=== PATIENT | male | born 1965 | race Caucasian/White ===

== ENCOUNTER 2020-01-21 09:47 | Outpatient (REF) | payer OTHER, SELFPAY ==
[2020-01-21 11:37] LABS: MANUAL DIFF FLAG NO
[2020-01-21 11:42] LABS: Basophils Percent Auto 0.6 % (0-2); Eosinophils Absolute Auto 0.2 X10*3/uL (0.0-0.4); Eosinophils Percent Auto 3.7 % (0-4); Hematocrit 44.2 % (42-52); Hemoglobin 14.5 g/dl (14.0-18.0); Imm Gran Abs Auto 0.03 X10*3/uL (0.00-0.03); Imm Gran Pct Auto 0.5 % (0.0-0.4); Lymphocytes Absolute Auto 2.4 X10*3/uL (1.2-4.9); Lymphocytes Percent Auto 37.2 % (20-40); Mean Corpuscular HGB Conc 32.8 g/dl (31.0-36.0); Mean Corpuscular Volume 91.3 fL (80-98); Mean Platelet Volume 10.3 fL (9.4-12.4); Monocytes Absolute Auto 0.5 X10*3/uL (0.1-1.2); Monocytes Percent Auto 6.9 % (2-11); Neutrophils Absolute Auto 3.3 X10*3/uL (2.0-8.3); Neutrophils Percent Auto 51.1 % (45-73); Platelet Count 276 X10*3/uL (160-400); Red Blood Count 4.84 X10*6/uL (4.60-5.80); Red Cell Distribution Width 13.8 % (11.0-16.0); White Blood Count 6.5 X10*3/uL (4.8-10.8)
[2020-01-21 12:08] LABS: Alanine Aminotransferase 9 U/L (0-40); Albumin Level 4.4 g/dL (3.5-5.0); Alkaline Phosphatase 42 U/L (39-117); Aspartate Amino Transferase 11 U/L (5-37); Bilirubin Total 0.2 mg/dL (0.0-1.0); Blood Urea Nitrogen 11 mg/dL (9-16); Calcium 9.1 mg/dL (8.4-10.2); Cholesterol 195 mg/dL; Estimated Glomerular Filt Rate > 60; Glucose Fasting 91 mg/dL (60-99); HDL Cholesterol 63 mg/dL; LDL Cholesterol Calculated 108 mg/dl; Total Protein 6.7 g/dL (6.5-8.0); Triglycerides 121 mg/dL
[2020-01-21 12:19] LABS: Anion Gap 12 (12-20); Carbon Dioxide 23 mmol/L (22-29); Chloride 106 mmol/L (96-108); Potassium 4.2 mmol/l (3.3-5.1); Sodium 137 mmol/L (135-145); ~Hepatitis C Antibody Nonreactive (Nonreactive)
[2020-01-21 12:25] LABS: Prostate Specific Antigen 0.48 ng/mL (<0.05-4.0)
== END 2020-01-21 09:48 | disposition home or self-care (01) ==
LOC: HO.MANLDS 09:47
PROVIDERS: PCP Internal Medicine; Visit Provider Internal Medicine
DX: Z00.00 Encounter for general adult medical examination without abnormal findings (principal)
CPT/HCPCS: 36415; 80053; 80061; 84153; 85025; 86803

== ENCOUNTER 2020-07-04 13:52 | Outpatient (REF) | payer OTHER, SELFPAY ==
[2020-07-04 17:53] LABS: MANUAL DIFF FLAG NO
[2020-07-04 18:04] LABS: Basophils Percent Auto 0.5 % (0-2); Eosinophils Absolute Auto 0.2 X10*3/uL (0.0-0.4); Eosinophils Percent Auto 2.8 % (0-4); Hemoglobin 14.1 g/dl (14.0-18.0); Imm Gran Abs Auto 0.01 X10*3/uL (0.00-0.03); Imm Gran Pct Auto 0.2 % (0.0-0.4); Lymphocytes Absolute Auto 2.6 X10*3/uL (1.2-4.9); Lymphocytes Percent Auto 39.3 % (20-40); Mean Corpuscular HGB Conc 33.6 g/dl (31.0-36.0); Mean Corpuscular Hemoglobin 30.2 pg (27.0-33.0); Mean Corpuscular Volume 89.9 fL (80-98); Mean Platelet Volume 10.3 fL (9.4-12.4); Monocytes Absolute Auto 0.4 X10*3/uL (0.1-1.2); Monocytes Percent Auto 6.8 % (2-11); Neutrophils Absolute Auto 3.3 X10*3/uL (2.0-8.3); Neutrophils Percent Auto 50.4 % (45-73); Platelet Count 286 X10*3/uL (160-400); Red Blood Count 4.67 X10*6/uL (4.60-5.80); Red Cell Distribution Width 13.4 % (11.0-16.0); White Blood Count 6.5 X10*3/uL (4.8-10.8)
[2020-07-04 18:39] LABS: Erythrocyte Sedimentation Rate 2 MM/HR (0-15)
[2020-07-04 18:40] LABS: Alanine Aminotransferase 12 U/L (0-40); Albumin Level 4.5 g/dL (3.5-5.0); Alkaline Phosphatase 56 U/L (39-117); Amylase 96 U/L (28-100); Anion Gap 11 (12-20); Aspartate Amino Transferase 13 U/L (5-37); Bilirubin Total 0.8 mg/dL (0.0-1.0); Blood Urea Nitrogen 12 mg/dL (9-16); Calcium 9.3 mg/dL (8.4-10.2); Carbon Dioxide 24 mmol/L (22-29); Chloride 106 mmol/L (96-108); Estimated Glomerular Filt Rate > 60; Glucose Random 135 mg/dL (60-115); Lipase 50 U/L (8-78); Potassium 4.1 mmol/L (3.3-5.1); Sodium 137 mmol/L (135-145)
== END 2020-07-04 13:53 | disposition home or self-care (01) ==
LOC: HO.MANLDS 13:52
PROVIDERS: PCP Internal Medicine; Visit Provider Internal Medicine
DX: R10.12 Left upper quadrant pain (principal)
CPT/HCPCS: 36415; 80053; 82150; 83690; 85025; 85652

== ENCOUNTER 2021-02-24 10:30 | Outpatient (REF) | payer OTHER, SELFPAY ==
[2021-02-24 14:46] LABS: Alanine Aminotransferase 12 U/L (0-40); Albumin Level 4.4 g/dL (3.5-5.0); Alkaline Phosphatase 42 U/L (39-117); Anion Gap 12 (12-20); Aspartate Amino Transferase 12 U/L (5-37); Bilirubin Total 0.4 mg/dL (0.0-1.0); Blood Urea Nitrogen 13 mg/dL (9-16); Calcium 9.5 mg/dL (8.4-10.2); Carbon Dioxide 26 mmol/L (22-29); Chloride 105 mmol/L (96-108); Cholesterol 188 mg/dL; Estimated Glomerular Filt Rate > 60; Glucose Fasting 82 mg/dL (60-99); HDL Cholesterol 52 mg/dL; LDL Cholesterol Calculated 112 mg/dl; Potassium 4.4 mmol/L (3.3-5.1); Sodium 139 mmol/L (135-145); Triglycerides 122 mg/dL
== END 2021-02-24 10:31 | disposition home or self-care (01) ==
LOC: HO.MANLDS 10:30
PROVIDERS: PCP Physician Assistant; Visit Provider Physician Assistant
DX: I10 Essential (primary) hypertension (principal); E78.00 Pure hypercholesterolemia, unspecified
CPT/HCPCS: 36415; 80053; 80061

== ENCOUNTER 2021-07-14 15:59 | Outpatient (REF) | payer OTHER, SELFPAY | END 2021-07-14 16:00 | disposition home or self-care (01) | LOC: HO.MANLDS 15:59 | PROVIDERS: PCP Internal Medicine; Visit Provider Internal Medicine | DX: N39.0 Urinary tract infection, site not specified (principal) | CPT/HCPCS: 87086 ==

== ENCOUNTER 2022-02-19 18:19 | Outpatient (REF) | payer OTHER, SELFPAY ==
[2022-02-19 18:30] LABS: Appearance Urine Clear; Color Urine Yellow; Glucose Urine UA Negative (Negative); Leukocyte Esterase Urine Negative (Negative); Nitrite Urine Negative (Negative); Specific Gravity - Urine <= 1.005 (1.005-1.025); Urine Blood Negative (Negative); Urine Ketones Negative (Negative); Urine Protein Negative (Neg-Trace)
== END 2022-02-19 18:20 | disposition home or self-care (01) ==
LOC: HO.LNP 18:19
PROVIDERS: Visit Provider Physician Assistant
DX: N30.80 Other cystitis without hematuria (principal)
CPT/HCPCS: 81003

== ENCOUNTER 2022-02-23 10:47 | Outpatient (REF) | payer OTHER, SELFPAY ==
[2022-02-23 15:10] LABS: Prostate Specific Antigen 0.65 ng/mL (<0.05-4.0)
== END 2022-02-23 10:48 | disposition home or self-care (01) ==
LOC: HO.MANLDS 10:47
PROVIDERS: Visit Provider Physician Assistant
DX: Z12.5 Encounter for screening for malignant neoplasm of prostate (principal); N40.0 Benign prostatic hyperplasia without lower urinary tract symptoms
CPT/HCPCS: 36415; 84153

== ENCOUNTER 2022-08-20 07:31 | Outpatient (REF) | payer OTHER, SELFPAY ==
[2022-08-20 11:57] LABS: MANUAL DIFF FLAG NO
[2022-08-20 12:04] LABS: Basophils Percent Auto 0.4 % (0-2); Eosinophils Absolute Auto 0.2 X10*3/uL (0.0-0.4); Eosinophils Percent Auto 3.3 % (0-4); Hematocrit 44.1 % (42.0-52.0); Hemoglobin 14.6 g/dl (14.0-18.0); Imm Gran Abs Auto 0.03 X10*3/uL (0.00-0.03); Imm Gran Pct Auto 0.4 % (0.0-0.4); Lymphocytes Absolute Auto 2.5 X10*3/uL (1.2-4.9); Lymphocytes Percent Auto 36.2 % (20-40); Mean Corpuscular HGB Conc 33.1 g/dl (31.0-36.0); Mean Corpuscular Hemoglobin 29.8 pg (27.0-33.0); Mean Platelet Volume 10.3 fL (9.4-12.4); Monocytes Absolute Auto 0.6 X10*3/uL (0.1-1.2); Monocytes Percent Auto 8.5 % (2-11); Neutrophils Absolute Auto 3.5 x10*3/uL (2.0-8.3); Neutrophils Percent Auto 51.2 % (45-73); Platelet Count 316 X10*3/uL (160-400); Red Cell Distribution Width 13.4 % (11.0-16.0); White Blood Count 6.9 X10*3/uL (4.8-10.8)
[2022-08-20 12:25] LABS: Alanine Aminotransferase 12 U/L (0-40); Albumin Level 4.5 g/dL (3.5-5.0); Alkaline Phosphatase 42 U/L (39-117); Anion Gap 11 (12-20); Aspartate Amino Transferase 17 U/L (5-37); Bilirubin Total 0.9 mg/dL (0.0-1.0); Blood Urea Nitrogen 12 mg/dL (9-16); Calcium 9.8 mg/dL (8.4-10.2); Carbon Dioxide 25 mmol/L (22-29); Chloride 108 mmol/L (96-108); Cholesterol 167 mg/dL; Estimated Glomerular Filt Rate > 60; Glucose Random 94 mg/dL (60-115); HDL Cholesterol 50 mg/dL; LDL Cholesterol Calculated 100 mg/dl; Potassium 4.1 mmol/L (3.3-5.1); Sodium 140 mmol/L (135-145); Total Protein 6.8 g/dL (6.5-8.0); Triglycerides 88 mg/dL
== END 2022-08-20 07:32 | disposition home or self-care (01) ==
LOC: HO.MANLDS 07:31
PROVIDERS: Visit Provider Internal Medicine
DX: Z00.00 Encounter for general adult medical examination without abnormal findings (principal); E78.00 Pure hypercholesterolemia, unspecified
CPT/HCPCS: 36415; 80053; 80061; 85025

== ENCOUNTER 2024-07-03 09:07 | Outpatient (REF) | payer OTHER, SELFPAY ==
--- OUTSIDE RECORDS SUMMARY | 2024-07-03 10:01 | XMS_ITS | Data Portability ---
Author Organization [facility] Address [address] [place] [address] Assessment Encounter Date Assessment Date Assessment LastModified by Organization Details LastModified Time 07/14/2021 07/14/2021 [id number] [place] [id number] ([employer]OOK[employer]) MDM MODERATE MUST MEET 2 OUT OF 3 ELEMENTS: PROBLEMS, DATA OR RISK ELEMENT 1: PROBLEMS ADDRESSED 1 OR MORE CHRONIC ILLNESS WITH EXACERBATION OR 2 OR MORE STABLE CHRONIC ILLNESSES OR 1 UNDIAGNOSED NEW PROBLEM OR 1 ACUTE ILLNESS W/SYMPTOMS OR 1 ACUTE COMPLICATED INJURY ELEMENT 2: DATA MUST MEET 1 OF 3 CATEGORIES CATEGORY 1: REVIEW OF PRIOR EXTERNAL NOTES, REVIEW OF RESULTS, ORDERING OF EACH TEST, ASSESSMENT REQUIRING INDEPENDENT HISTORIAN OR CATEGORY 2: INDEPENDENT INTERPRETATION OF TESTS BY ANOTHER PHYSICIAN OR SPECIALIST OR CATEGORY 3: DISCUSSION OF MGT OR TEST INTERPRETATION W/EXTERNAL PHYSICIAN OR SPECIALIST ELEMENT 3: RISK RISK OF COMPLICATIONS AND/OR MORBIDITY OR MORTALITY OF PATIENT MANAGEMENT PROVIDER MUST THOROUGHLY DOCUMENT EACH ELEMENT THAT IS COVERED Not available 07/14/2021 14:35:02 Plan of Treatment Reminders Order Date Submit Date Provider Last Modified By Organization Details Last Modified Time Details Appointments ANNUAL EXAM 2025 09:00A ELIGIO PERRY Not available Not available Not available Lab lipid panel, blood 2024 025 [facility], [address] [place] [address], [place], [address], 06/26/2024 14:05:28 CMP, serum or plasma 2024 025 [facility], [address] [place] [address], [id number], 06/26/2024 14:05:28 CBC w/ auto diff 2024 025 [facility], [address] [place] [address], [id number], 06/26/2024 14:05:27 urinalysi s, dipstick 2024 025 [facility], [address], [address], [place], [address], 06/26/2024 14:18:13 PSA, serum or plasma 2024 025 [facility], [address] [place] [address], [address], 06/26/2024 14:05:27 hemoglobi n A1c, QN, blood 2024 025 [facility], [address] [place] [address], [id number], 06/26/2024 14:05:28 CMP, serum or plasma 2022 023 [facility], [address] [place] [address], [id number], 08/23/2022 11:28:54 lipid panel, blood 2022 023 [facility], [address] [place] [address], [address], 08/23/2022 11:28:54 CBC w/ auto diff 2022 023 [facility], [address] [place] [address], [address], 08/23/2022 11:28:54 urinalysi s complete, reflex culture 2021 022 [facility], [address] [place] [address], [address], 02/22/2022 12:13:07 PSA, total, serum or plasma 2021 022 [facility], [address] [facility], [place], [address], 02/24/2022 12:10:21 urinalysi s, dipstick 2021 022 [email or web address] [facility], [address] [place] [address], [address], [place], [address], 07/14/2021 14:36:09 Referral urologist referral 2021 022 [email or web address] 10 Wale Bauman MD, [address] [place] [address], [address], 03/22/2022 10:16:17 Procedures None recorded. Surgeries None recorded. Imaging CT, heart, w/o contrast, w/ coronary calcium score 2022 023 [facility], [address] [place], [address], 08/16/2022 08:43:27 electroca rdiogram 2021 022 [email or web address] [facility], [address] [place] [address], [address], [place], [address], 07/15/2021 08:07:43 Medication Orders trazodone 50 mg tablet 2024 025 [facility] #2024, [address] [place], [address], 06/26/2024 13:49:22 fenofibra te nanocryst allized 48 mg tablet 2024 025 [facility] #2024, [address] [place], [address], 06/26/2024 13:49:23 atorvasta tin 10 mg tablet 2024 025 [facility] #2024, [address] [place], [address], 06/26/2024 13:49:21 efinacona zole 10 % topical solution with applicato r 2024 025 [facility] [address] [place], [address], 06/26/2024 13:49:22 propranol ol ER 120 mg capsule,2 4 hr,extend ed release 2024 025 [facility] [address] [place], [address], 06/26/2024 13:49:22 Cipro 500 mg tablet 2021 022 [email or web address] [facility]acy #2024, [address] [place], [address], 08/10/2022 13:33:32 levofloxa patricia 500 mg tablet 2021 022 [email or web address] [facility]acy #2024, [address] [place], [address], 02/19/2022 14:46:12 Patient TargetsNo targets recorded. Patient Instructions Encounter Date Encounter Id Patient Instructions Last Modified By Organization Details Last Modified Time 07/14/2021 [id number] costochondritis: care instructions Not available 07/14/2021 14:36:09 Reason for Referral Urologist Referral for Chron ic interstitial cystitis needs new referral, last seen in 2017 Referring Physician: Ruby Villaseñor, Internal Medicine, Encounter Date: 02/19/2022 Results Created Date Observation Date Name Description Value Unit Range Abnormal Flag Note LastModifiedBy Organization Detail LastModifiedTime 07/15/1907/14/2021 urina lysis , dipst ick Leukocytes Trace Not Available [facility] [address] [facility] [address], [place], [address], 07/14/2021 14:07:58 07/15/19 22 07/14/2021 urina lysis , dipst ick Nitrite negati ve Not Available [facility] Internal [address], [place], [address], 07/14/2021 14:07:58 07/15/19 22 07/14/2021 urina lysis , dipst ick Urobilinogen .2 Not Available [facility] [address], [place], [address], 07/14/2021 14:07:58 07/15/19 22 07/14/2021 urina lysis , dipst ick Protein Negati ve Not Available [address], [place], [address], 07/14/2021 14:07:58 07/15/19 22 07/14/2021 urina lysis , dipst ick pH 6.0 Not Available [address], [place], [address], 07/14/2021 14:07:58 07/15/19 22 07/14/2021 urina lysis , dipst ick Blood Non-He molyze d: Trace Not Available [address], [place], [address], 07/14/2021 14:07:58 07/15/19 22 07/14/2021 urina lysis , dipst ick Specific [place] 1.015 Not Available [address], [place], [address], 07/14/2021 14:07:58 07/15/19 22 07/14/2021 urina lysis , dipst ick Ketone Negati ve Not Available [address], [place], [address], 07/14/2021 14:07:58 07/15/19 22 07/14/2021 urina lysis , dipst ick Bilirubin Negati ve Not Available [address], [place], [address], 07/14/2021 14:07:58 07/15/19 22 07/14/2021 urina lysis , dipst ick Glucose Negati ve Not Available [address], [place], [address], 07/14/2021 14:07:58 07/15/19 22 07/14/2021 urina lysis , dipst ick Appearance Clear Not Available [address], [place], [address], 07/14/2021 14:07:58 07/15/19 22 07/14/2021 urina lysis , dipst ick Color Pale Yellow Not Available [address], [place], [address], 07/14/2021 14:07:58 06/27/1906/26/2024 urina lysis , dipst ick Leukocytes Negati ve Not Available [address], [place], [address], 06/26/2024 13:52:04 06/27/19 25 06/26/2024 urina lysis , dipst ick Nitrite negati ve Not Available [address], [place], [address], 06/26/2024 13:52:04 06/27/1906/26/2024 urina lysis , dipst ick Urobilinogen .2 Not Available [address], [place], [address], 06/26/2024 13:52:04 06/27/19 25 06/26/2024 urina lysis , dipst ick Protein Negati ve Not Available [facility] [address], [place], [address], 06/26/2024 13:52:04 06/27/1906/26/2024 urina lysis , dipst ick Blood Modera te Not Available [facility] [address], [place], [address], 06/26/2024 13:52:04 06/27/1906/26/2024 urina lysis , dipst ick Specific [place] 1.010 Not Available [facility] [address], [place], [address], 06/26/2024 13:52:04 06/27/19 25 06/26/2024 urina lysis , dipst ick Ketone Negati ve Not Available [facility] [address], [place], [address], 06/26/2024 13:52:04 06/27/1906/26/2024 urina lysis , dipst ick Bilirubin Negati ve Not Available [facility] [address], [place], [address], 06/26/2024 13:52:04 06/27/1906/26/2024 urina lysis , dipst ick Glucose Negati ve Not Available [facility] [address], [place], [address], 06/26/2024 13:52:04 07/15/19 22 07/14/2021 elect roccammy everettgr am No observ ation record ed. miguel angel [facility] [address], [place], [address], 07/14/2021 14:49:30 07/16/19 22 07/14/2021 elect rocar diogr am No observ ation record ed. BARCODE [facility] [address], [place], [address], 07/15/2021 11:20:37 08/26/19 23 08/25/2022 CT, heart , w/o contr ast, w/ coron praveen calci um score No observ ation record ed. [facility] [address] [facility], [place], [address], 09/29/2022 08:07:59 07/26/19 24 07/14/2023 XR, hip, unila teral , 2 or 3 view No observ ation record ed. BARCODE Not Available 2023 16:41:47 Result Notes None recorded. Problems Name Problem SNOMED Code Status Onset Date Resolution Date Notes Provider Name and Address Organization Details Recorded Time Hyperchole sterolemia 91241603 Active 2019 Not Available [facility] 2 09:45:57 Costal chondritis 83857984 Active 2021 Not Available [facility] 2 09:45:57 Dysuria 94619769 Active 2021 Not Available [facility] 2 09:45:57 Recurrent urinary tract infection 350340912 Active 2021 ELIGIO BAUTISTA [address] [place], [address], [facility] 2 14:57:02 Benign prostatic hyperplasi a 263492544 Active 2021 ELIGIO BAUTISTA [address] [place], [address], [facility] 2 14:58:22 Chronic interstiti al cystitis 364422722 Active 2017 Not Available [facility] 2 09:45:57 Essential hypertensi on 50630094 Active 2017 Not Available [facility] 2 09:45:57 Lumbago with sciatica 972572077 Active 2023 ELIGIO BAUTISTA [address] [place], [address], [facility] 4 09:50:15 Lumbago with sciatica 609951973 Active 2023 ELIGIO BAUTISTA [address] [place], [address], [facility] 4 13:05:42 Onychomyco sis of toenails 870860730 Active 2024 ELIGIO BAUTISTA [address] [place] [address], [address], [facility] 5 13:46:06 Insomnia 801657430 Active 2024 ELIGIO BAUTISTA [address] [place] [address], [address], [facility] 5 13:50:54 Hypogonadi sm 74200315 Active 2017 Not Available [facility] 2 09:45:57 Problem Notes None recorded. Procedures Surgical History None recorded. Imaging Results Imaging Date Name Status LastModified by Organization Details LastModified Time 07/14/2021 electrocardiogram completed [facility] [address] [place] [address] [address], [place], [address], 07/14/2021 14:49:30 07/14/2021 electrocardiogram completed [facility] [address] [place] [address] [address], [place], [address], 07/15/2021 11:20:37 08/25/2022 CT, heart, w/o contrast, w/ coronary calcium score completed [facility] [address] [place], [address], 09/29/2022 08:07:59 07/14/2023 XR, hip, unilateral, 2 or 3 view completed [facility] Information not available 07/26/2023 16:41:47 Procedure Notes None recorded. Medical Equipment None Reported. Allergies No known drug allergies Medications Name Sig Start Date Stop Date Status Note LastModified by Organization Details LastModified Time cyclobenzap rine 10 mg tablet TAKE 1 TABLET BY MOUTH THREE TIMES A DAY NEEDED FOR 30 DAYS 06/26 completed Not Available Not Available Not Available amoxicillin 500 mg capsule 12/30 completed Not Available Not Available Not Available prednisone 10 mg tablet 40 mg x 2 days30 mg x 2 days20 mg x 2 days10 mg x 2 days 07/18 completed Not Available Not Available Not Available doxycycline hyclate 100 mg capsule 12/30 completed Not Available Not Available Not Available propranolol ER 160 mg capsule,24 hr,extended release Take 1 capsule every day by oral route. 12/30 completed Not Available Not Available Not Available tizanidine 2 mg tablet TAKE 1 TABLET BY MOUTH THREE TIMES A DAY FOR 14 DAYS 06/26 completed Not Available Not Available Not Available trazodone 50 mg tablet TAKE ONE TO TWO TABLETS AT BEDTIME NEEDED FOR SLEEP 2024 active Not Available Not Available Not Avai lable atorvastati n 10 mg tablet TAKE 1 TABLET BY MOUTH EVERY DAY 2024 active Not Available Not Available Not Avai lable meloxicam 15 mg tablet TAKE 1 TABLET BY MOUTH EVERY DAY 06/26 completed Not Available Not Available Not Available prednisone 20 mg tablet TAKE 2 TABLETS BY MOUTH DAILY FOR 4 DAYS 07/18 completed Not Available Not Available Not Available ciprofloxac in 500 mg tablet TAKE 1 TABLET BY MOUTH EVERY 12 HOURS FOR 10 DAYS 08/10 completed Not Available Not Available Not Available sulfamethox azole 800 mg-trimetho prim 160 mg tablet 12/30 completed Not Available Not Available Not Available tramadol 50 mg tablet TAKE 1 BY MOUTH THREE TIMES A DAY NEEDED PAIN, MAY PARTIAL FILL 06/26 completed Not Available Not Available Not Available amoxicillin 500 mg tablet TAKE 1 TABLET BY MOUTH THREE TIMES A DAY UNTIL FINISHED 02/19 completed Not Available Not Available Not Available oxycodone-a cetaminophe n 5 mg-325 mg tablet 10/04 completed Not Available Not Available Not Available tamsulosin 0.4 mg capsule Take 1 capsule every day by oral route. 07/18 completed Not Available Not Available Not Available trazodone 100 mg tablet TAKE 1 TABLET BY MOUTH EVERY DAY 2024 active Not Available Not Available Not Avai lable baclofen 10 mg tablet Take 1 tablet 3 times a day by oral route as needed for 14 days. 03/06 completed Not Available Not Available Not Available doxycycline monohydrate 100 mg capsule TAKE 1 CAPSULE BY MOUTH 2 TIMES A DAY FOR 2 DOSES. 06/26 completed Not Available Not Available Not Available cephalexin 500 mg capsule Take 1 capsule 3 times a day by oral route. 08/11 completed Not Available Not Available Not Available clotrimazol e-betametha sone 1 %-0.05 % topical cream 12/30 completed Not Available Not Available Not Available clindamycin phosphate 1 % topical swab 12/30 completed Not Available Not Available Not Available magnesium citrate oral solution 12/30 completed Not Available Not Available Not Available bisacodyl 5 mg tablet,anam yed release TAKE 4 TABLETS ORALLY PT HAS INSTRUCTI ONS 1 DAYS active Not Available Not Available No t Available mupirocin 2 % topical ointment 12/30 completed Not Available Not Available Not Available propranolol ER 120 mg capsule,24 hr,extended release TAKE 1 CAPSULE BY MOUTH EVERY DAY 2024 active Not Available Not Available Not Avai lable ibuprofen 600 mg tablet TAKE 1 TABLET BY MOUTH 4 TIMES A DAY FOR 10 DAYS NEEDED FOR PAIN 07/18 completed Not Available Not Available Not Available levofloxaci n 500 mg tablet TAKE 1 TABLET BY MOUTH EVERY 24 HOURS FOR 10 DAYS 02/19 completed Not Available Not Available Not Available methylpredn isolone 4 mg tablets in a dose pack per package instructi ons 12/30 completed Not Available Not Available Not Available ketoconazol e 2 % topical cream 12/30 completed Not Available Not Available Not Available doxycycline hyclate 100 mg tablet 12/30 completed Not Available Not Available Not Available naproxen 500 mg tablet TAKE 1 TABLET BY MOUTH EVERY 12 HOURS NEEDED FOR PAIN 02/19 completed Not Available Not Available Not Available testosteron e 1 % (50 mg/5 gram) transdermal gel packet Apply 1 packet every day by transderm al route. 08/11 completed Not Available Not Available Not Available oxycodone 5 mg tablet TAKE 1 TABLET BY MOUTH EVERY 6 HOURS FOR 1 WEEK NEEDED FOR MODERATE PAIN 06/26 completed Not Available Not Available Not Available pregabalin 75 mg capsule TAKE 1 CAPSULE BY MOUTH TWICE A DAY 06/26 completed Not Available Not Available Not Available chlorhexidi ne gluconate 0.12 % mouthwash RINSE 1 CAPFUL FOR 1 MINUTE THEN EXPECTORA TE. USE TWICE A DAY UNTIL FINISHED. 02/19 completed Not Available Not Available Not Available fenofibrate nanocrystal lized 48 mg tablet TAKE 1 TABLET BY MOUTH EVERY DAY 2024 active Not Available Not Available Not Avai lable testosteron e 50 mg/5 gram (1 %) transdermal gel 08/11 completed Not Available Not Available Not Available GaviLyte-G 236 gram-22.74 gram-6.74 gram-5.86 gram oral solution PT HAS INSTRUCTI ONS 1 DAYS 06/26 completed Not Available Not Available Not Available testosteron e 10 mg/0.5 gram/actuat ion transdermal gel pump APPLY 4 PUMPS EVERY DAY 08/11 completed Not Available Not Available Not Available AndroGel 1.62 % (20.25 mg/1.25 gram) transdermal gel packet Apply 1 packet every day by transderm al route. 08/11 completed Not Available Not Available Not Available efinaconazo le 10 % topical solution with applicator APPLY TO AFFECTED TOENAIL(S ) BY TOPICAL ROUTE ONCE DAILY 2024 active Not Available Not Available Not Avai lable Fluarix Quad (PF) 60 mcg (15 mcg x 4)/0.5 mL IM syringe 07/04 completed Not Available Not Available Not Available Vitals Date Recorded Body height Body mass index (BMI) Body weight Heart rate Oxygen saturation Oxygen saturation in Arterial blood by Pulse oximetry Systolic blood pressure Diastolic blood pressure Provider Name and Address Organization Details Last Updated DateTime 2 168.28 cm 28.7 kg/m2 89343.1 1 g 61 /min 100 % 100 % 128 mm[Hg] 70 mm[Hg] Marina Loyd [facility] 2 14:05:09 Date Recorded Body height Heart rate Oxygen saturation Oxygen saturation in Arterial blood by Pulse oximetry Systolic blood pressure Diastolic blood pressure Provider Name and Address Organization Details Last Updated DateTime 2 168.28 cm 55 /min 100 % 100 % 130 mm[Hg] 80 mm[Hg] Ree Patten [facility] 11/18/202 2 14:47:29 Date Recorded Body height Body mass index (BMI) Body weight Heart rate Oxygen saturation Oxygen saturation in Arterial blood by Pulse oximetry Systolic blood pressure Diastolic blood pressure Provider Name and Address Organization Details Last Updated DateTime 3 168.28 cm 29 kg/m2 95422.2 2 g 63 /min 98 % 98 % 140 mm[Hg] 80 mm[Hg] Charlotte Guillen [facility] 3 13:35:33 Date Recorded Body height Body mass index (BMI) Body weight Heart rate Oxygen saturation Oxygen saturation in Arterial blood by Pulse oximetry Systolic blood pressure Diastolic blood pressure Provider Name and Address Organization Details Last Updated DateTime 4 168.91 cm 28.3 kg/m2 80978.4 4 g 67 /min 99 % 99 % 144 mm[Hg] 84 mm[Hg] Brandin Sierra [facility] 4 10:00:32 Date Recorded Body height Body mass index (BMI) Body weight Heart rate Oxygen saturation Oxygen saturation in Arterial blood by Pulse oximetry Systolic blood pressure Diastolic blood pressure Provider Name and Address Organization Details Last Updated DateTime 5 168.91 cm 28.3 kg/m2 11301.4 4 g 67 /min 98 % 98 % 144 mm[Hg] 88 mm[Hg] Charlotte Guillen [facility] 5 13:38:19 Social History Question Answer Notes LastModified by Organizat ion Details LastModified Time Tobacco Smoking Status Never Smoker Not Available [facility] 02/05/2020 03:36:24 What Was The Date Of Your Most Recent Tobacco Screening? 06/26/2024 [email or web address] Information not available 06/26/2024 Sex: Unknown Functional Status None recorded. Mental Status None recorded. Family History Nothing Reported. Medical History No medical history recorded. Immunizations Vaccine Type Date Status Note Provider Nam e and Address Organization Details Recorded Time Influenza, split virus, quadrivalent, preservative 2 completed Ree taylor [facility] 02/15/2022 08:23:13 Tdap 0 completed Not Available [facility] 09/17/2021 06:19:42 zoster recombinant 0 completed Not Available [facility] 09/17/2021 06:19:42 zoster recombinant 1 completed Not Available [facility] 09/17/2021 06:19:42 Influenza, split virus, quadrivalent, preservative 0 completed Not Available [facility] 09/17/2021 06:19:42 COVID-19, mRNA, LNP-S, PF, 100 mcg/0.5mL dose or 50 mcg/0.25mL dose 1 completed Not Available [facility] 09/17/2021 06:19:42 COVID-19, mRNA, LNP-S, PF, 100 mcg/0.5mL dose or 50 mcg/0.25mL dose 1 completed Not Available [facility] 09/17/2021 06:19:42 Past Encounters Encounter ID Performer Location Encounter Start Date Encounter Closed Date Diagnosis/Indication Diagnosis SNOMED-CT Code Diagnosis ICD10 Code Diagnosis Note [id number] Suad Huizar NP, [facility] [address] [facility], [place] [address] 10/04/2017 14:29:10 10/04/2017 15:02:49 Furuncle 211258592 L02.92 f/u in office tuesday Hypercholesterolemia 136 63574 E78.00 reviewed labs, will discuss further at f/u appt Essential hypertension 07950458 I10 in pain and anxious, f/u tuesday [id number] Suad Huizar NP, [facility] [address] [facility], [place] [address] 10/07/2017 15:09:20 10/07/2017 16:36:55 Furuncle 372293899 L02.92 Testostero ne level below reference range 918069498 R79.89 Insomnia 914657148 G47.0 0 Hypercholesterolemia 136 72743 E78.00 reviewed labs, will discuss further at f/u appt [id number] Suad Huizar NP, [facility] [address] [facility], [place] [address] 08/11/2018 13:55:53 08/11/2018 16:34:02 Acute right otitis media 549557372 H66.91 Essential hypertension 22995335 I10 to do labs prior to upcoming CPE [id number] Jamel Bela [facility] [address] [facility], [place] [address] 12/31/2019 14:56:51 12/31/2019 15:57:00 Renewal of prescription 973793842 Z76.0 Adult heal th examination 683288511 Z00.00 doing great will neeed fbw [id number] Jamel Beal [facility] [address] [facility], [place] [address] 07/04/2020 11:54:09 07/04/2020 14:26:26 Essential hypertension 15185068 I10 bp is elevated but he is nervous and clearly not feeling good Left upper quadrant pain 677414127 R10.12 will need to have this eval soon as poss bc this has worsened intensity of discomfort has worsened also doesnt want to eat bc of the discomfort and will likely be losing wgt from this [id number] ELIGIO BAUTISTA [facility] [address] [facility], [place] [address] 08/01/2020 14:10:04 08/01/2020 16:42:56 Rib pain 083482233 R07.81 will fu with XR as the pain is along the lower ribs [id number] ELIGIO BAUTISTA [facility] [address] [facility], [place] [address] 03/06/2021 09:53:38 03/06/2021 15:37:36 Hypercholesterolemia 03488147 E78.2 stable Essential hypertension 88470185 I10 stable Hypogonadism 40133808 E2 9.1 stable Chronic in terstitial cystitis 397230203 N30.10 stable Insomnia 822557838 G47.0 9 stable [id number] Jamel Beal [facility] [address] [facility],[place] [address] 07/14/2021 13:54:12 07/15/2021 08:07:43 Dysuria 67615104 R30.9 will treat with cipro Chest pain 76269213 R07. 9 Costal chondritis 825059 04 M94.0 will use heat and ibuprofen [id number] ELIGIO BAUTISTA [facility] [address] [facility] [address],[place] [address] 02/19/2022 14:34:44 02/19/2022 16:37:53 Chronic interstitial cystitis 460064712 N30.10 stable Recurrent urinary tract infection 485858940 N30.80 will fu with a cipro prescripti on Benign pro static hyperplasia 875268578 N40.0 will recheck PSAoverdue [id number] Jamel Beal, [facility] [address] [facility] [address],[place] [address] 08/10/2022 13:28:55 08/10/2022 14:44:01 Active or passive immunization 808441918 Z23 Adult heal th examination 285638336 Z00.00 doing great will need fbw [id number] ELIGIO BAUTISTA [facility] Internal [facility] [address] [facility] [facility] [address],[place] [address] 07/19/2023 09:55:11 07/19/2023 11:26:48 Lumbago with sciatica 121411980 M54.42 waiting on MRI to be approved [id number] ELIGIO BAUTISTA [facility] [address] [facility] [address] [address] 06/26/2024 13:26:35 06/26/2024 14:18:39 Insomnia 601124023 G47.09 REFILL Essential hypertension 09983134 I10 REFILL Hypercholesterolemia 136 02779 E78.2 REFILL Onychomyco sis of toenails 175632160 B35.1 will set up with topical worked prior from dermatolog yREFILL Adult heal th examination 877876286 Z00.00 vitals stable Screening for malignant neoplasm of prostate 872599043 Z12.5 will set up with screening Diabetes m ellitus screening 234681489 Z13.1 will set up with A1c Health Concerns Section Related Observation LastModified by Organization Detai ls LastModified Time None Recorded Concern Status LastModified by Organization Details LastModified Time None Recorded Advance Directives Directive None Recorded Payers Encounter Date Sequence Insurance Name Policy Number Policy Martinez Covered Member ID Martinez Member ID Guarantor Name 07/14/2021 1 [facility]LY [facility] INDEMNITY PLAN - [employer] [id number] Osmin Mullins [id number] Osmin WoodyBeau 02/19/2022 1 FORMERLY [facility], [facility] INDEMNITY PLAN - [employer] [id number] Osmin Mullins [id number] Osmin WoodyBeau 08/10/2022 1 [facility] INDEMNITY PL[employer] - [employer] [id number] Osmin Flood Harpreet [id number] Osmin Flood Harpreet 07/19/2023 1 [facility] [employer] [id number] 4 Osmin Flood Harpreet [id number] Osmin Flood Harpreet 06/26/2024 1 [facility]LY [facility] INDEMNITY PLAN - [employer] [id number] Osmin Mullins [id number] Osmin Mullins Notes Date Note Type Note Provider Name a al Address Organization Details Recorded Time 2 text/html here for eval of suddne onset of lacw pain began last weekcan occur 3-4 x day but has since lessend in freqno sobsudden pain not assoc exertionhas been lifting wgtslast a second or soable to cont worknever had before Jamel Beal DO [address] [place] [address], [phone], [facility] 07/14/2021 14:36:51 2 text/html c/o UTI recurrent UTIthe patient has an angry bladder disorderthe patient reports acute onset bladder and pelvic painmid-back back with mild chillsno fever, no body aches denies blood in the urinedenies smell or color charge no penial discharge but reports burning sensation and increased frequency needs new referal to uroalso needs an updated PSA draw ELIGIO BAUTISTA [address] [place] [address], [phone], [facility] 02/19/2022 15:04:44 3 text/html Annual WellnessReported bypatient.Diet and Nutrition:healthy diet Fracture Risk:no history of fractures; no recent explained fracture; no sudden unexplained fractures; no previous musculoskeletal injuries Physical Activity:exercises on a regular basis; recent increase in physical activity; good physical condition Additional Lifestyle Factors:no tobacco use; no alcohol intake; stopped drinking alcohol Depression Risk:never feels sad, empty, or tearful; no loss of interest in activities; no significant changes in weight; no sleep disturbances or insomnia; no agitation; no loss of energy; no feelings of worthlessness or guilt; no thoughts of suicide; no history of depression; no history of mood disorders Hearing:no loss of hearing Vision:no vision problemsNotes:relates that it was here for rechk doing ok overall ' Jamel Beal DO [address] [place], [address], [facility] 08/10/2022 13:58:51 4 text/html c/o low back pain f/u from this weekendthe patient is feeling better with the painthe patient finds the muscle relaxer discussed using the ibuprofen as needed for the patient for the inflammationthe patient and I are waiting for his MRI to get approved the patient in the meantime is comfortable and more able to improvethe patient and I will f/u after the fact of his MRI ELIGIO BAUTISTA [address] [place], [address], [facility] 07/19/2023 10:14:02 5 text/html Annual WellnessReported bypatient.Diet and Nutrition:healthy diet; discussed vitamin and supplement use; discussed portion control; discussed maintaining calcium balance; discussed diet improvement Fracture Risk:no history of fractures; no recent explained fracture; no sudden unexplained fractures; no previous musculoskeletal injuries Physical Activity:exercises on a regular basis; recent increase in physical activity; good physical condition; discussed weightbearing activities; discussed exercise habits Additional Lifestyle Factors:no tobacco use; drinks alcohol (mild-moderate); caffeine intake 16 oz per day alcohol intake, 2 to 3 drinks per week Depression Risk:never feels sad, empty, or tearful; no loss of interest in activities; no significant changes in weight; no sleep disturbances or insomnia; no agitation; no loss of energy; no feelings of worthlessness or guilt; no thoughts of suicide; no history of depression; no history of mood disorders Hearing:no loss of hearing Vision:no vision problemsNotes:sees eye doctor regularlytinnitus > saw ENT the patient had his colonoscopy, negative, every 10 years had a laminectomy of his lumbar spinethe patient is 6 mos out from surgery ELIGIO BAUTISTA [address] [place] [address], [phone], [facility] 06/26/2024 14:09:05
--- OUTSIDE RECORDS SUMMARY | 2024-07-03 10:02 | XMS_ITS | Data Portability ---
Author Organization [place] [facility], Allergy Address [address] [address] Care Team Providers Care Welding Machine Operator Electroslag Name Role Phone DANITZA ANDREWS Primary Care Provider Assessment Encounter Date Assessment Date Assessment LastModified by Organization Details LastModified Time 05/14/2024 05/14/2024 59yo male with history of right-sided sudden SNHL, since resolved, presents for evaluation of the ears. Reports tinnitus for seven years and intermittent ear blockage that worsened 6 weeks ago. Cerumen impaction removed bilaterally, which patient tolerated well. Otologic exam demonstrated TMs are intact with well-aerated middle ear spaces. Audiometric testing offered, and patient will schedule formal hearing test in [place]. Recommend 6-month follow-up for cerumen removal, sooner with issues. [email or web address] Not available 05/14/2024 12:02:20 06/22/2024 06/22/2024 Recommendations : Follow up with referring provider. Not available 06/22/2024 11:03:31 Plan of Treatment Reminders Order Date Submit Date Provider Last Modified By Organization Details Last Modified Time Details Appointments Establish ed 30 2024 09:00A M ALEKSANDER Everett MD Not available Not available Not available Establish ed 15 2024 09:45A M ALEXIS CAMACHO PA-C Not available Not available Not available Lab None recorded. Referral None recorded. Procedures None recorded. Surgeries None recorded. Imaging None recorded. Medication Orders None recorded. Patient TargetsNo targets recorded. Patient InstructionsNo instructions recorded. Reason for Referral None Reported. Results Created Date Observation Date Name Description Value Unit Range Abnormal Flag Note LastModifiedBy Organization Detail LastModifiedTime 06/26/1906/22/2024 audio gram No observ ation record ed. [email or web address] Not Available 2024 16:27:17 Result Notes None recorded. Problems Name Problem SNOMED Code Status Onset Date Resolution Date Notes Provider Name and Address Organization Details Recorded Time Sensorine ural hearing loss 36088614 Active 2022 Sensorine ural hearing loss, unilatera l, right ear, with unrestric carlton hearing on the contralat eral side; Note: Date Diagnosed : 02/04/2023 9:26 AM (H90.41) Not Available [facility] 4 02:36:03 Tinnitus of right ear 43723872356 08 Active 2022 Tinnitus, right ear; Note: Date Diagnosed : 02/04/2023 9:26 AM (H93.11) Not Available [facility] 4 02:36:15 Sudden idiopathi c hearing loss 263790410 Active 2022 Sudden idiopathi c hearing loss, right ear; Note: Date Diagnosed : 02/04/2023 9:26 AM (H91.21) Not Available [facility] 4 02:36:07 Impacted cerumen of bilateral ears 81445220688 64762 Active 2024 GRUPO MANCIA PA-C [address] [facility],[place] [address], [place], [address] , [facility] - [facility] 5 12:01:54 Bilateral tinnitus 82979285861 02 Active 2024 GRUPO MANCIA PA-C [address] [facility],[place] [address], [place], [address] , [facility] - [facility] 5 12:02:14 Tinnitus of left ear 04090935168 06 Active 2024 Ranjit HORN [address] [facility],[place] [address], [place], [address] , [facility] - [facility] 5 11:03:32 Sensorine ural hearing loss of bilateral ears 874574567 Active 2024 Ranjit HORN [address] [facility],[place] [address], [place], [address] , [facility] - [facility] 5 11:05:14 Problem Notes None recorded. Procedures Surgical History Date Name Laterality Status Provider Name and Address Organization Details Recorded Time 5 Air & Speech Audio with Tymps (92114, 84292 & 16726) completed CHACE FRIED, AuD [address] [facility],[address], [place], [address], [facility] 06/22/2024 11:03:31 5 Cerumen removal without microscope bilat completed ELIGIO BUTTS-C [address] [facility] [address], [place], [address], [facility] 05/14/2024 11:55:04 Imaging Results Imaging Date Name Status [facility]Modified by [facility] Details LastModified Time 06/22/2024 audiogram completed [email or web address] Information no t available 06/25/2024 16:27:17 Procedure Notes None recorded. Medical Equipment None Reported. Allergies No known drug allergies Medications Name Sig Start Date Stop Date Status Note LastModified by Organization Details LastModified Time cyclobenz aprine 10 mg tablet TAKE 1 TABLET BY MOUTH THREE TIMES A DAY NEEDED FOR 30 DAYS active Not Available Not Available No t Available prednison e 10 mg tablet TAKE 4 TABS DAILY X2 DAYS, 3 TABS DAILY X2 DAYS, 2 TABS DAILY X2 DAYS, 1 TAB DAILY X2 DAYS active Not Available Not Available No t Available tizanidin e 2 mg tablet TAKE 1 TABLET BY MOUTH THREE TIMES A DAY FOR 14 DAYS active Not Available Not Available No t Available atorvasta tin 10 mg tablet TAKE 1 TABLET BY MOUTH EVERY DAY active Not Available Not Available No t Available meloxicam 15 mg tablet TAKE 1 TABLET BY MOUTH EVERY DAY active Not Available Not Available No t Available prednison e 20 mg tablet TAKE 2 TABLETS BY MOUTH DAILY FOR 4 DAYS active Not Available Not Available No t Available ciproflox acin 500 mg tablet active Medicati on ID: [id number] B rand Name: ciproflo xacin HCl Send Method: E-Prescr ibed Sub s Allowed: subs OK Medic ationGen ericName : ciproflo xacin HCl Not Available Not Available Not Available tramadol 50 mg tablet TAKE 1 BY MOUTH THREE TIMES A DAY NEEDED PAIN, MAY PARTIAL FILL active Not Available Not Available No t Available tamsulosi n 0.4 mg capsule active Medicati on ID: [id number] B rand Name: juancarlos in Send Method: E-Prescr ibed Sub s Allowed: subs OK Medic ationGen ericName : tamsulos in Not Available Not Available Not Available trazodone 100 mg tablet TAKE 1 TABLET BY MOUTH EVERY DAY active Not Available Not Available No t Available doxycycli ne monohydra te 100 mg capsule TAKE 1 CAPSULE BY MOUTH 2 TIMES A DAY FOR 2 DOSES. 05/14 completed Not Available Not Available Not Available bisacodyl 5 mg tablet,de layed release TAKE 4 TABLETS ORALLY PT HAS INSTRUCT IONS 1 DAYS active Not Available Not Available No t Available propranol ol ER 120 mg capsule,2 4 hr,extend ed release TAKE 1 CAPSULE BY MOUTH EVERY DAY active Not Available Not Available No t Available ibuprofen 600 mg tablet TAKE 1 TABLET BY MOUTH 4 TIMES A DAY FOR 10 DAYS NEEDED FOR PAIN active Not Available Not Available No t Available oxycodone 5 mg tablet TAKE 1 TABLET BY MOUTH EVERY 6 HOURS FOR 1 WEEK NEEDED FOR MODERATE PAIN active Not Available Not Available No t Available pregabali n 75 mg capsule TAKE 1 CAPSULE BY MOUTH TWICE A DAY active Not Available Not Available No t Available fenofibra te nanocryst allized 48 mg tablet TAKE 1 TABLET BY MOUTH EVERY DAY active Not Available Not Available No t Available GaviLyte- G 236 gram-22.7 4 gram-6.74 gram-5.86 gram oral solution PT HAS INSTRUCT IONS 1 DAYS 05/14 completed Not Available Not Available Not Available Jublia 10 % topical solution with applicato r active Medicati on ID: [id number] B rand Name: Jublia S end Method: E-Prescr ibed Sub s Allowed: subs OK Medic ationGen ericName : Jublia Not Available Not Available Not Available Vitals Date Recorded Body height Body mass index (BMI) Body weight Provider Name and Address Organization Details Last Updated DateTime 05/14/2024 170.18 cm 26.6 kg/m2 73294.7 g [place] [facility] 05/14/2024 11:28:24 Social History None recorded. Functional Status None recorded. Mental Status None recorded. Family History Nothing Reported. Medical History No medical history recorded. Past Encounters Encounter ID Performer Location Encounter Start Date Encounter Closed Date Diagnosis/Indication Diagnosis SNOMED-CT Code Diagnosis ICD10 Code Diagnosis Note [id number] CESAR CAZARES MD [facility] [address] [facility] [place] [address] 05/14/2024 11:13:01 05/14/2024 11:58:08 Impacted cerumen of bilateral ears 7404082832 244244 H61.23 Bilateral tinnitus 25206 37028 102 H93.13 [id number] Ranjit HORN [facility] on [address] [facility] [place] [address] 06/22/2024 10:22:41 06/22/2024 11:01:42 Bilateral tinnitus 9307148576 102 H93.13 Sensorineu ral hearing loss of bilateral ears 611431667 H90.3 Audiologic al evaluation results: Right ear: {{Normal* Mild Moder ate Modera tely severe Sev ere Profou nd No response}} {{hearing* sensorine ural hearing loss condu ctive hearing loss mixed hearing loss}} from 250 through {{215 894 7625 1500 2000* 3000 4000 6000 8000}} Hz {{sloping to* rising to}} {{normal a mild a moderate* a moderately severe a severe a profound}} {{hearing with senso rineural hearing loss with* cond uctive hearing loss with mixed hearing loss with}} {{excellen t* good fa ir poor no measurable }} word recognitio n. Left ear: {{Normal* Mild Moder ate Modera tely severe Sev ere Profou nd No response}} {{hearing* sensorine ural hearing loss condu ctive hearing loss mixed hearing loss}} from 250 through {{073 207 3868 1500 2000* 3000 4000 6000 8000}} Hz {{sloping to* rising to}} {{normal a mild a moderate a moderately severe* a severe a profound}} {{hearing with senso rineural hearing loss with* cond uctive hearing loss with mixed hearing loss with}} {{excellen t* good fa ir poor no measurable }} word recognitio n. Tympanomet ry: Right Ear:{{Type A* Type A with rounded peak Type A with double peak Type As Type As with rounded peak Type Ad Type C Type C, shallow & rounded peak Type B Type B with large volume Cou ld not maintain a hermetic seal}} Left Ear:{{Type A* Type A with rounded peak Type A with double peak Type As Type As with rounded peak Type Ad Type C Type C, shallow & rounded peak Type B Type B with large volume Cou ld not maintain a hermetic seal}} Health Concerns Section Related Observation LastModified by Organization Detai ls LastModified Time None Recorded Concern Status LastModified by Organization Details LastModified Time None Recorded Advance Directives Directive None Recorded Payers Encounter Date Sequence Insurance Name Policy Number Policy Martinez Covered Member ID Martinez Member ID Guarantor Name 05/14/2024 1 [employer] INDE[employer]ITY PLAN (PPO) [id number] Osmin Mullins [id number] Osmin Mullins 06/22/2024 1 [employer] INDEMNITY PLAN (PPO) [id number] Osmin Mullins [id number] Osmin Mullins Notes Date Note Type Note Provider Name and Address Organization Details Recorded Time 5 text/html 59yo male with history of right-sided sudden SNHL, since resolved, presents for evaluation of the ears. Reports tinnitus for seven years and intermittent ear blockage that worsened 6 weeks ago. He used Debrox at the time which worsened his tinnitus. Today he denies otalgia, otorrhea, tinnitus, or Qtip use. CESAR CAZARES MD [address], [address], [place] - [facility] 05/15/2024 16:42:28 5 text/html Audiological Evaluation HPIReported bypatient.Tinnitus reported:both ears(worse in the right) Sounds like:high pitched Past Audiological Evaluation Resultssensorineural hearing loss both ears; amplification has not been recommended Ranjit HORN [address] [facility],[place] [address], [place], [address], [place] [facility] 06/22/2024 11:05:59
--- OUTSIDE RECORDS SUMMARY | 2024-07-03 10:02 | XMS_ITS | Continuity of Care Document ---
Author Organization [facility] Address [address] [place] [address]- Care Team Providers Care Credit Operations Specialist Name Role Phone Jamel Beal DO Primary Care Physician Encounter [facility] Date(s): 05/29/24 - 06/28/24 [facility] [address] [place] [address]- Attending Physician: Joana Kennedy Admitting Physician: Joana Kennedy Referring Physician: trJoana Encounter Type: Triage Allergies, Adverse Reactions, Alerts No Known Allergies Medications atorvastatin 10 mg oral tablet 1 tablet = 10 mg, By Mouth, Daily, 0 Refills, Maintenance, 11/08/23 10:56:00 AM EDT, Partial fill upon patient request if the prescription is for a schedule II opioid drug. Start Date: 11/08/23 Status: Ordered Repeat number: 1 fenofibrate 48 mg oral tablet 1 tablet = 48 mg, By Mouth, Daily, 0 Refills, Maintenance, 11/08/23 10:55:00 AM EDT, Partial fill upon patient request if the prescription is for a schedule II opioid drug. Start Date: 11/08/23 Status: Ordered Repeat number: 1 oxyCODONE 5 mg oral tablet 5 mg, By Mouth, Every 6 hours, PRN, # 28 tablet, Refills 0, Tot. Refills 0, Soft Stop, Pain , Moderate, 12/07/23 9:43:00 AM EDT, Route to Pharmacy Electronically, [facility]/pharmacy #[id number], Partial fill upon patient request if the prescription is for a schedule II opioid drug., 170, cm, 11/23/23 8:11:00 EDT, Height, 76.2, kg, 11/30/23 10:15:00 EDT, Dry Weight Start Date: 12/07/23 Stop Date: 12/14/23 Status: Ordered Quantity: 28.0 Unit: tablet Repeat number: 1 propranolol 120 mg oral capsule, extended release 1 capsule = 120 mg, By Mouth, Daily, 0 Refills, Maintenance, 11/08/23 10:53:00 AM EDT, Partial fill upon patient request if the prescription is for a schedule II opioid drug. Start Date: 11/08/23 Status: Ordered Repeat number: 1 tiZANidine 2 mg oral tablet 2 mg, 1, tablet, By Mouth, 3 times a day, # 42 tablet, Refills 0, Tot. Refills 0, Maintenance, 11/30/23 3:12:00 PM EDT, Route to Pharmacy Electronically, [facility], Partial fill upon patient request if the prescription is for a schedule II opioid drug., 170, cm, 11/23/23 8:11:00 EDT, Height, 76.2, kg, 11/30/23 10:15:00 EDT, Dry Weight Start Date: 11/30/23 Stop Date: 12/14/23 Status: Ordered Quantity: 42.0 Unit: tablet Repeat number: 1 Trazodone = 50 mg, By Mouth, Daily at bedtime, 0 Refills, Maintenance, 11/08/23 10:56:00 AM EDT, Partial fill upon patient request if the prescription is for a schedule II opioid drug. Start Date: 11/08/23 Status: Ordered Repeat number: 1 Tylenol 8 Hour Caplet = 1,300 mg, By Mouth, Every 8 hours, 0 Refills, Maintenance, 11/08/23 10:56:00 AM EDT, Partial fill upon patient request if the prescription is for a schedule II opioid drug. Start Date: 11/08/23 Status: Ordered Repeat number: 1 Problem List Condition Confirmation Course Effective Dates Status Health St atus Informant Hyperlipidemia Confirmed Active Hypertension Confirmed Active Insomnia Confirmed Active Social History Social History Type Response Smoking Status Never (less than 100 in lifetime) entered on: 11/23/23 Sex Sex Representation Male (finding) Patient Care team information Care Team Personnel Name: Jamel Beal DO Position: Reference Physician Member Role: PCP Address: [address] [place] [address] Internal Medicine [address] Telecom: Care Team Related Persons Name: CHRISTIANO CLARK Insurance Providers Guarantor name: [facility] Information #: 1 Payer: [facility] Member Number: NA Policy Number: NA Group Number: NA
--- OUTSIDE RECORDS SUMMARY | 2024-07-03 10:02 | XMS_ITS | Continuity of Care Document ---
Author Organization [facility] Address [address] [place] [address]- Care Team Providers Care Performance Improvement Director Name Role Phone Jamel Beal DO Primary Care Phys[id number] Date(s): [facility]/10[facility]24 - 06/28/24 [facility] [address] [place] [address]- Attending Physician: Nitish Felipe MD Admitting Physician: Nitish Felipe MD Referring Physician: Jerry Zeng MD Encounter Type: Pre-OutPatient One Time Allergies, Adverse Reactions, Alerts No Known Allergies [...] 9:43:00 AM EDT, Route to Pharmacy Electronically, [facility]/pharmacy #[id number], Partial fill upon patient request [...] 3:12:00 PM EDT, Route to Pharmacy Electronically, [facility], Partial fill upon patient [...] Position: Reference Physician Member Role: PCP Address: [address] [place] [address] Internal Medicine [address] Telecom: Care Team Related Persons Name: CHRISTIANO CLARK Insurance Providers Guarantor name: OLIVER CLARK Health Plan Information #: 1 Payer: [facility] Member Number: [id number] Policy Number: NA Group Number: [id number] Health Plan Information #: 2 Payer: [facility] Member Number: [id number] Policy Number: NA Group Number: NA
[2024-07-03 13:15] LABS: MANUAL DIFF FLAG NO
[2024-07-03 13:24] LABS: Basophils Percent Auto 0.4 % (0-2); Eosinophils Absolute Auto 0.2 X10*3/uL (0.0-0.4); Eosinophils Percent Auto 2.7 % (0-4); Hematocrit 45.9 % (42.0-52.0); Hemoglobin 15.5 g/dl (14.0-18.0); Imm Gran Abs Auto 0.03 X10*3/uL (0.00-0.03); Imm Gran Pct Auto 0.4 % (0.0-0.4); Lymphocytes Absolute Auto 2.6 X10*3/uL (1.2-4.9); Lymphocytes Percent Auto 31.9 % (20-40); Mean Corpuscular HGB Conc 33.8 g/dl (31.0-36.0); Mean Corpuscular Hemoglobin 29.6 pg (27.0-33.0); Mean Corpuscular Volume 87.6 fL (80.0-98.0); Mean Platelet Volume 10.1 fL (9.4-12.4); Monocytes Absolute Auto 0.6 X10*3/uL (0.1-1.2); Monocytes Percent Auto 6.8 % (2-11); Neutrophils Absolute Auto 4.7 x10*3/uL (2.0-8.3); Neutrophils Percent Auto 57.8 % (45-73); Platelet Count 330 X10*3/uL (160-400); Red Blood Count 5.24 X10*6/uL (4.60-5.80); Red Cell Distribution Width 13.6 % (11.0-16.0); White Blood Count 8.1 X10*3/uL (4.8-10.8)
[2024-07-03 14:15] LABS: Prostate Specific Antigen 0.69 ng/mL (<0.05-4.0)
[2024-07-03 14:20] LABS: Alanine Aminotransferase 16 U/L (0-40); Albumin Level 4.5 g/dL (3.5-5.0); Alkaline Phosphatase 40 U/L (39-117); Anion Gap 9 (12-20); Aspartate Amino Transferase 19 U/L (5-37); Bilirubin Total 0.6 mg/dL (0.0-1.0); Blood Urea Nitrogen 14 mg/dL (9-16); Calcium 9.8 mg/dL (8.4-10.2); Carbon Dioxide 23 mmol/L (22-29); Chloride 111 mmol/L (96-108); Cholesterol 169 mg/dL (<200); Estimated Glomerular Filt Rate > 60; Glucose Random 91 mg/dL (60-115); HDL Cholesterol 52 mg/dL (>40); LDL Cholesterol Calculated 94 mg/dL (<100); Sodium 139 mmol/L (135-145); Total Protein 7.2 g/dL (6.5-8.0); Triglycerides 116 mg/dL (<150)
[2024-07-03 17:09] LABS: Estimated Average Glucose 105 mg/dL; Hemoglobin A1C 135.9626 umol/L; Hemoglobin A1c % 5.3 % (<6.0); Total Hemoglobin (HGBA1C) 3942.3664 umol/L
== END 2024-07-03 09:08 | disposition home or self-care (01) ==
LOC: HO.MANLDS 09:07
PROVIDERS: Visit Provider Physician Assistant
DX: E78.2 Mixed hyperlipidemia (principal); Z00.00 Encounter for general adult medical examination without abnormal findings; Z12.5 Encounter for screening for malignant neoplasm of prostate; Z13.1 Encounter for screening for diabetes mellitus
CPT/HCPCS: 36415; 80053; 80061; 83036; 84153; 85025